=== PATIENT | male | born 1970 | race Caucasian/White ===

== ENCOUNTER 2018-05-02 10:27 | Emergency (ER) | payer OTHER ==
[2018-05-02 10:54] VITALS: BP 143/82
--- NOTE | 2018-05-02 12:19 | ED Physician Documentation ---
History of Present Illness - Stated complaint Stated Complaint: PX-LUMP ON STOMACH - Chief complaint Chief Complaint: Abd Pain - Additonal information Additional information: hx from pt works at [employer] pushing 2000lb load felt pain and bulge to umbilicus occured yesterday still hurts no NV Review of Systems Constitutional: denies: Fever GI: reports: Abdominal Pain. denies: Nausea, Vomiting PD PAST MEDICAL HISTORY - Past Medical History Past Medical History: No - Past Surgical History Past Surgical History: Yes HEENT: Tonsil/Adenoidectomy - Present Medications Home Medications: Ambulatory Orders Medication Instructions Recorded Confirmed No Known Home Medications [No 05/02/18 05/02/18 Known Home Medications] - Allergies Allergies/Adverse Reactions: Allergies Allergy/AdvReac Type Severity Reaction Status Date / Time No Known Drug Allergies Allergy Verified 05/02/18 11:20 - Social History Does the pt smoke?: Yes Smoking Status: Current some day smoker Does the pt drink ETOH?: Yes ETOH Use: Wine, Beer, Liquor Does the pt have substance abuse?: No - Immunizations Immunizations are current?: Yes - POLST Patient has POLST: No PD ED PE NORMAL - Vitals Vital signs reviewed: Yes - Cardiac Cardiac: RRR - Respiratory Respiratory: No respiratory distress, Clear bilaterally - Abdomen Abdomen: Other (reducible umbilical hernia) - Neuro Neuro: Alert and oriented X 3 Results - Vitals Vitals: Vital Signs - 24 hr 05/02/18 10:48 Temperature 36.3 C L Heart Rate 86 Respiratory 18 Rate Blood Pressure 143/82 H O2 Saturation 96 Oxygen O2 Source Room air PD MEDICAL DECISION MAKING - ED course ED course: MSE provided injury identified = reducble hernia safe for dc with surg fup - Sepsis Event Vital Signs: Vital Signs - 24 hr 05/02/18 10:48 Temperature 36.3 C L Heart Rate 86 Respiratory 18 Rate Blood Pressure 143/82 H O2 Saturation 96 Oxygen O2 Source Room air Departure - Departure Disposition: 01 Home, Self Care Clinical Impression: Umbilical hernia Qualifiers: Obstruction and gangrene presence: without obstruction or gangrene Qualified Code(s): K42.9 - Umbilical hernia without obstruction or gangrene Condition: Good Instructions: Hernia How Develops Follow-Up: Contreras Cortes MD [Provider Admit Priv/Credential] - Comments: You have an umbilical hernia It is reducible right now so it is safe for you to go home. Please call the surgery office to schedule follow up and discuss surgery If the hernia bulges, lay down, apply an ice pack for 10 minutes and apply firm pressure until it slides back into the abdominal cavity. If the pain is severe or the lump cannot be pushed back in, come to the ER Avoid all lifting and pushing and straining Forms: Activity restrictions
== END 2018-05-02 13:13 | disposition home or self-care (01) ==
LOC: ED 10:27
DX: K42.9 Umbilical hernia without obstruction or gangrene (principal); F17.200 Nicotine dependence, unspecified, uncomplicated; X50.9XXA Other and unspecified overexertion or strenuous movements or postures, initial encounter; Y92.89 Other specified places as the place of occurrence of the external cause; Y99.0 Civilian activity done for income or pay
CPT/HCPCS: 1040M; 99283; 99284

== ENCOUNTER 2018-05-28 09:50 | Day surgery (SDC) | payer OTHER ==
[~2018-05-28 09:50] MED LIST: ceFAZolin 1 GM VIAL ONE; ceFAZolin 2 GM/50 ML 2 GM/50 ML BAG IV ONE
--- NOTE | 2018-05-28 10:11 | ANESTHESIA ---
Pre-Anesthesia VS, & Labs - Diagnosis supra umbilical hernia - Procedure repair supraumbilical hernia Vital Signs: 149/93 79 96% 36.5 16 Height 6 ft 7 in Body Mass Index 30.4 - NPO >8 hours Home Medications and Allergies Home Medications: Ambulatory Orders Medication Instructions Recorded Confirmed No Known Home Medications [No 05/02/18 05/02/18 Known Home Medications] Allergies/Adverse Reactions: Allergies Allergy/AdvReac Type Severity Reaction Status Date / Time No Known Drug Allergies Allergy Verified 05/28/18 10:31 Anes History & Medical History - Anesthetic History Anesthesia Complications: reports: No previous complications - Medical History Cardiovascular: reports: None Pulmonary: reports: None Gastrointestinal: reports: None Urinary: reports: None Neuro: reports: None Musculoskeletal: reports: None Endocrine/Autoimmune: reports: None Blood Disorders: reports: None Skin: reports: None Smoking Status: Current some day smoker Psychosocial: reports: Alcohol (scotch on weekends) - Surgical History Eyes Ears Nose Throat (EENT): Tonsil/Adenoidectomy Exam General: Alert Mouth Opening: Greater than 4 Fingerbreadths Mallampati classification: II Thyromental Distance: greater than 6 cm Respiratory: Lungs clear Cardiovascular: Regular rate Mental/Cognitive Status: Alert/Oriented X3 Plan Anesthesia Type: General Consent for Procedure(s) Verified and Reviewed: Yes Code Status: Attempt Resuscitation ASA classification: 1-Healthy patient Is this case an emergency?: No
[2018-05-28] MEDS ORDERED: BUPIVACAINE 0.5% PF 30 ML VIAL ONE (10:21)
[2018-05-28] MEDS ORDERED: LACTATED RINGERS 1,000 ML IV ONE ×2 (10:25→13:12)
[2018-05-28] MEDS ORDERED: BUPIVACAINE 0.5% PF 30 ML VIAL INFIL ONE ×2 (12:21→12:36)
[2018-05-28] MEDS ORDERED: LIDOCAINE-MPF 2% 5 ML VIAL IM ONE (12:41)
[2018-05-28] MEDS ORDERED: DEXAMETHASONE 4 MG/ML VIAL IVP ONE (12:41)
[2018-05-28] MEDS ORDERED: fentaNYL 100 MCG/2 ML VIAL IVP ONE (12:41)
[2018-05-28] MEDS ORDERED: KETOROLAC 30 MG/ML VIAL IVP ONE (12:41)
[2018-05-28] MEDS ORDERED: PROPOFOL 200 MG/20 ML VIAL IVP ONE (12:41)
[2018-05-28] MEDS ORDERED: ONDANSETRON 4 MG/2 ML VIAL IVP ONE (12:41)
[2018-05-28] MEDS ORDERED: MIDAZOLAM 2 MG/2 ML VIAL IVP ONE (12:41)
--- NOTE | 2018-05-28 13:03 | OPERATIVE REPORT ---
Operative Report - General Procedure Date: 05/28/18 Planned Procedure: Umbilical herniorrhaphy Pre-Op Diagnosis: Umbilical hernia Procedure Performed: Umbilical herniorrhaphy with mesh Post Op Diagnosis: Umbilical hernia - Procedure Note Primary Surgeon: Conterras Cortes MD Anesthesia Provider: Jennifer Barrios CRNA Anesthesia Technique: General LMA, Local (30 mL of half percent Marcaine) IV Fluids (mL): 1,000 Estimated Blood Loss (mL): 5 Complications: None - Other Other Information/Narrative: OPERATIVE DESCRIPTION/REPORT: After verbal and written informed consent was obtained detailing the risks of infection, bleeding requiring transfusion with its risks, nerve injury, and , and after I met with the patient confirming the surgery and the site of the surgery, the patient was brought to the operative suite and placed supine on the operating table. Great care was taken to avoid pressure points to prevent pressure necrosis or nerve injury. Monitoring devices were applied along with TEDs and pneumatic compressive stockings (to prevent DVT). The patient received preoperative antibiotics for surgical prophylaxis. Jennifer Barrios CRNA sedated and anesthetized the patient for the entire procedure. The patient was prepped and draped in the usual sterile manner. With the patient draped my initials were clearly visible. A "time in" then confirmed that the paitient was identified with 3 identifiers (name, birthdate and medical record number), the history and physical was in the chart, the signed consent confirming the procedure was in the chart, the patient was in the correct position, the aforementioned prophylactic measures were in place or given, we had the correct personnel and equipment to complete the procedure and that anesthesia, surgery and nursing were given an opportunuty to express any concerns. With the agreement of everyone in the room, we proceeded with the operation. After injecting the area with % Marcaine, a standard curvilinear umbilical incision was made and dissection was carried down to the hernia sac using a combination of Metzenbaum scissors and Bovie electrocautery. The sac was cleared of overlying adherent tissue, and the fascial defect was delineated. The fascia was cleared of any adherent tissue for a distance 1.5 cm from the defect. The sac was placed back into the abdomen. The defect was closed using a Ventralex ST hernia patch (Lot [id number], Ref#[id number], use by 2020-03-04). This was secured to the fascia using interrupted 2-0 PDS sutures superiorly and inferiorly utilizing the straps and trimming the excess strap. Laterally I placed a 2-0 PDS for additional support. The patient was then given an ``innie by suturing the back of the umbilicus to the fascia using a 2-0 Vicryl. Meticulous hemostasis was obtained using Bovie electrocautery. The skin incision was approximated with a running subcuticular 4-0 Monocryl. After the prep was washed off, benzoin and steristrips were applied. A dressing was then applied. At this point a time out was performed that confirmed that all the counts were correct, the procedure that was performed, the blood loss, the IV fluids administered, and the patients condition. Having tolerated the procedure well, the patient was subsequently taken to recovery room in good and stable condition.
[2018-05-28 13:49] VITALS: BP 142/84
== END 2018-05-28 09:51 | disposition home or self-care (01) ==
LOC: SDS 09:50
PROVIDERS: ATTEND Surgery
PROC: 0WUF0JZ Supplement Abdominal Wall with Synthetic Substitute, Open Approach (ICD-10-PCS; principal; 2018-05-28 10:45)
DX: K42.9 Umbilical hernia without obstruction or gangrene (principal); I10 Essential (primary) hypertension; F17.210 Nicotine dependence, cigarettes, uncomplicated
CPT/HCPCS: 49585; C1781; J0690; J7120

== ENCOUNTER 2018-06-09 22:27 | Emergency (ER) | payer OTHER ==
--- NOTE | 2018-06-09 23:03 | ED Physician Documentation ---
PD HPI ABD PAIN - Stated complaint Stated Complaint: ABD PX - Chief complaint Chief Complaint: General - History obtained from History obtained from: Patient - History of Present Illness Timing - onset: Today Timing - details: Abrupt onset Pain level now: 0 Location: Periumbilical - Additional information Additional information: had umbilical hernia repair with mesh placement 12 days ago, had f/u Sunday with surgeon. Earlier today, patient noticed swelling at surgical site with surrounding bruising which he says was not there previous to today. Tonight he had some bleeding from the surgical site and thus came to ED. Denies any pain. Denies fever/chills/diaphoresis Review of Systems Constitutional: denies: Fever, Chills, Sweats GI: denies: Abdominal Pain, Nausea, Vomiting PD PAST MEDICAL HISTORY - Past Medical History Cardiovascular: None Respiratory: None Neuro: None Endocrine/Autoimmune: None GI: None : None HEENT: None Psych: None Musculoskeletal: None Derm: None - Past Surgical History Past Surgical History: Yes HEENT: Tonsil/Adenoidectomy - Present Medications Home Medications: Ambulatory Orders Medication Instructions Recorded Confirmed Cephalexin [Keflex] 500 mg PO Q6HR #27 capsule 06/10/18 - Allergies Allergies/Adverse Reactions: Allergies Allergy/AdvReac Type Severity Reaction Status Date / Time No Known Drug Allergies Allergy Verified 05/28/18 10:31 - Social History Does the pt smoke?: Yes Smoking Status: Current every day smoker Does the pt drink ETOH?: Yes Does the pt have substance abuse?: No - Immunizations Immunizations are current?: Yes - POLST Patient has POLST: No PD ED PE NORMAL - Vitals Vital signs reviewed: Yes - General General: Alert and oriented X 3, No acute distress, Well developed/nourished - Abdomen Abdomen: Soft, Non tender, Non distended PD ED PE EXPANDED - Abdomen Abdomen Visual: 1 - laceration (surgical incision site: the right lateral-most 1cm of the incision has 1-2mm separation of the skin edges that appears to be only at the superficial level (separation is no deeper than approximately 2 mm). There is scant bright and dark red blood expressed with palpation. There is firmness at the surgical site, approximately 3-4cm diameter, that is completely nontender.) 2 - bruising Results - Vitals Vitals: Vital Signs - 24 hr 06/09/18 06/10/18 22:30 00:33 Temperature 36.8 C Heart Rate 74 68 Respiratory 18 16 Rate Blood Pressure 147/94 H 125/87 H O2 Saturation 96 100 Oxygen O2 Source Room air PD MEDICAL DECISION MAKING - ED course Complexity details: reviewed old records, considered differential, d/w patient ED course: both general abdominal exam and exam focused on surgical site reveals no tenderness to palpation. There is no erythema although large echymosis surrounding the surgical site. I suspect the firm nodular area deep to the surgical site is accumulation of blood - Sepsis Event Vital Signs: Vital Signs - 24 hr 06/09/18 06/10/18 22:30 00:33 Temperature 36.8 C Heart Rate 74 68 Respiratory 18 16 Rate Blood Pressure 147/94 H 125/87 H O2 Saturation 96 100 Oxygen O2 Source Room air Departure - Departure Disposition: 01 Home, Self Care Clinical Impression: Postoperative bleeding from incision Condition: Good Instructions: ED Wound Check Post Op Bleeding Follow-Up: Contreras Cortes MD [Provider Admit Priv/Credential] - Prescriptions: Cephalexin [Keflex] 500 mg PO Q6HR #27 capsule Discharge Date/Time: 06/10/18 00:36
[2018-06-10] MEDS ORDERED: cephALEXin 250 MG CAPSULE PO STA (00:13)
[2018-06-10 00:36] VITALS: BP 125/87
== END 2018-06-10 00:36 | disposition home or self-care (01) ==
LOC: ED 22:27
DX: L76.22 Postprocedural hemorrhage of skin and subcutaneous tissue following other procedure (principal); F17.200 Nicotine dependence, unspecified, uncomplicated
CPT/HCPCS: 99283; A9270